=== PATIENT | female | born 1955 | race African-American/Black ===

== ENCOUNTER 2018-05-29 17:46 | Emergency (ER) | payer MEDICARE ==
[~2018-05-29] VITALS: Ht 157.5 cm; Wt 79.5 kg
[2018-05-29 18:07] VITALS: Ht 157.5 cm; Wt 79.5 kg
[2018-05-29] MEDS ORDERED: ALBUTEROL SULF8.5 GM INH (18:09)
[2018-05-29] MEDS ORDERED: ROBAXIN500 MG PO (22:30)
[2018-05-29 23:20] VITALS: BP 137/75
== END 2018-05-29 23:20 | disposition home or self-care (01) ==
LOC: D.ER 17:46
DX: S16.1XXA Strain of muscle, fascia and tendon at neck level, initial encounter (principal); V43.52XA Car driver injured in collision with other type car in traffic accident, initial encounter; Y93.89 Activity, other specified; Y92.410 Unspecified street and highway as the place of occurrence of the external cause; S80.02XA Contusion of left knee, initial encounter